=== PATIENT | female | born 1995 | race Caucasian/White ===

== ENCOUNTER 2017-04-25 11:25 | Emergency (ER) | payer OTHER ==
[2017-04-25 11:36] VITALS: BP 125/68; PULSE 101; TEMP 98.2; BMI 22.7
[2017-04-25] MEDS ORDERED: IBUPROFEN 400 MG TABLET (FP) PO ONE ×2 (12:44→12:52)
--- NOTE | 2017-04-25 12:54 | PDOC ---
History of Present Illness - General Chief Complaint: Respiratory Stated Complaint: FEVER Time Seen by Provider: 04/25/17 12:08 History Source: Patient Exam Limitations: No Limitations - History of Present Illness Initial Comments: 04/25/17 12:46 21 yr female 3 days fever, nasal congestion body aches sore throat. no flu vaccine this year. no vomiting Severity: reports: mild Past History - Past Medical History Allergies/Adverse Reactions: Allergies Allergy/AdvReac Type Severity Reaction Status Date / Time Penicillins Allergy Verified 04/25/17 11:36 Home Medications: Ambulatory Orders NK [No Known Home Medication] 04/25/17 COPD: No - Suicide/Smoking/Psychosocial Hx Smoking History: Never smoked Respiratory Specific PMHX - Complaint Specific PMHX Angina: No Bronchitis: No Pneumonia: No Pulmonary Embolus: No TB (Tuberculosis): No Review of Systems - Review of Systems Able to Perform ROS?: Yes Is the patient limited Tajik proficient: No Constitutional: No: Symptoms Reported HEENTM: Yes: Symptoms Reported Respiratory: Yes: Symptoms reported Cardiac (ROS): No: Symptoms Reported *Physical Exam - Vital Signs Last Vital Signs Temp Pulse Resp BP Pulse Ox 98.2 F 101 H 20 125/68 99 04/25/17 11:34 04/25/17 11:34 04/25/17 11:34 04/25/17 11:34 04/25/17 11:34 - Physical Exam General Appearance: Yes: Nourished, Appropriately Dressed HEENT: positive: EOMI, LUIS, Pharyngeal Erythema, Tonsillar Erythema, Nasal Congestion. negative: Tonsillar Exudate Neck: positive: Supple. negative: Lymphadenopathy (R), Lymphadenopathy (L) Respiratory/Chest: positive: Lungs Clear, Normal Breath Sounds Cardiovascular: positive: Regular Rhythm, Regular Rate Gastrointestinal/Abdominal: positive: Normal Bowel Sounds, Soft Musculoskeletal: positive: Normal Inspection Extremity: positive: Normal Capillary Refill, Normal Inspection, Normal Range of Motion Integumentary: positive: Normal Color, Dry, Warm Neurologic: positive: Fully Oriented, Alert, Normal Mood/Affect, Normal Response , Motor Strength 5/5 Medical Decision Making - Medical Decision Making 04/25/17 12:47 cc: fever, nasal congestion body aches sore throat non toxic flu like symptoms will check for strep pt is drinking well no vomiting *DC/Admit/Observation/Transfer Diagnosis at time of Disposition: Flu-like symptoms - Discharge Dispostion Disposition: HOME Condition at time of disposition: Good - Referrals - Patient Instructions Additional Instructions: drink at least 2 liters of water a day take motrin 600mg (advil, ibuprofen, motrin all the same medicine over the counter) every 6hrs for fever, pain or body aches gargle with warm salt water 4-5 times a day you have Flu Like symptoms and are highly contagious avoid crowds, avoid younger people and babies, avoid older adults return to ER for any change or worsening symptoms beber al menos 2 litros de agua al da tome motrin 600mg (advil, ibuprofeno, motrin, todas las mismas medicinas sin receta) cada 6 horas para la fiebre, el dolor o los taylor corporales hacer grgaras con agua salada tibia de 4 a 5 veces al da tiene sntomas de gripe y es muy contagioso, demetri las aglomeraciones, demetri a las personas ms jvenes y los bebs, demetri a los adultos mayores regresar a la ray de emergencias por cualquier cambio o empeoramiento de los s ntomas Print Language: VIETNAMESE - Post Discharge Activity
== END 2017-04-25 13:13 | disposition home or self-care (01) ==
LOC: JERFT 11:25
DX: J11.1 Influenza due to unidentified influenza virus with other respiratory manifestations (principal)
CPT/HCPCS: 87070; 87430; 99281-25

== ENCOUNTER 2018-08-19 06:30 | Emergency (ER) | payer OTHER ==
[2018-08-19 07:40] VITALS: TEMP 98.2; BMI 24.7
[2018-08-19] MEDS ORDERED: SODIUM CHLORIDE 0.9% 1000 ML INFUS.BAG IV ONE (07:44)
[2018-08-19] MEDS ORDERED: MAG HYDROX/AL HYDROX/SIMETH 30 ML UNIT-DOSE CUP PO ONE (07:44)
[2018-08-19] MEDS ORDERED: ONDANSETRON 4 MG/2 ML VIAL IVPUSH ONE (07:44)
[2018-08-19] MEDS ORDERED: FAMOTIDINE 20 MG/50 ML IVPB 20 MG/50 ML MG IVPB ONE ×2 (07:44→08:06)
[2018-08-19] MEDS ORDERED: LIDOCAINE VISCOUS 2% ORAL/TOP 20 ML UNIT-DOSE CUP MM ONE (07:45)
[2018-08-19] MEDS ORDERED: MAG HYDROX/AL HYDROX/SIMETH 30 ML UNIT-DOSE CUP ONE (08:06)
[2018-08-19] MEDS ORDERED: LIDOCAINE VISCOUS 2% ORAL/TOP 20 ML UNIT-DOSE CUP ONE (08:06)
[2018-08-19] MEDS ORDERED: ONDANSETRON 4 MG/2 ML VIAL ONE (08:06)
[2018-08-19 08:07] LABS: BASO % 0.6 % (0-2.0); HEMATOCRIT 38.5 % (32.4-45.2); LYMPH % 3.4 % (8-40); MCH 31.6 pg (25.7-33.7); MCHC 33.8 g/dl (32.0-36.0); MEAN CELL VOLUME 93.3 fl (80-96); MEAN PLT VOLUME 8.3 fl (7.5-11.1); MONO % 2.5 % (3.8-10.2); NEUT % 93.5 % (42.8-82.8); PLATELET COUNT 214 K/MM3 (134-434); RBC 4.13 M/mm3 (3.60-5.2); RDW 13.1 % (11.6-15.6)
[2018-08-19 08:34] LABS: EPI CELLS 7.5 /HPF (0-5/HPF); HCG,QUALITATIVE URINE Negative; PH,URINE 7.5 (5.0-8.0); URINE APPEARANCE TURBID; URINE BACTERIA 723.9 /hpf (NEGATIVE); URINE BILIRUBIN NEGATIVE (NEGATIVE); URINE CASTS 35 /lpf (0-8); URINE COLOR YELLOW; URINE GLUCOSE (UA) NEGATIVE (NEGATIVE); URINE KETONE NEGATIVE (NEGATIVE); URINE LEUK ESTERASE 1+ (NEGATIVE); URINE NITRITE NEGATIVE (NEGATIVE); URINE PROTEIN 1+ (NEGATIVE); URINE RBC 12 /hpf (0-4); URINE WBC 19 /hpf (0-5)
[2018-08-19 08:35] LABS: ALBUMIN 4.1 g/dl (3.4-5.0); ALK PHOS 90 U/L (45-117); ANION GAP 7 MMOL/L (8-16); BILIRUBIN,TOTAL 0.5 mg/dL (0.2-1); BLOOD UREA NITROGEN 9 mg/dL (7-18); CALCIUM 9.2 mg/dL (8.5-10.1); CHLORIDE 106 mmol/L (98-107); CO2 25 mmol/L (21-32); CREATININE 0.6 mg/dL (0.55-1.3); GLUCOSE,RANDOM 125 mg/dL (74-106); LIPASE 81 U/L (73-393); POTASSIUM 4.4 mmol/L (3.5-5.1); SGOT/AST 19 U/L (15-37); SGPT/ALT 19 U/L (13-61); SODIUM 138 mmol/L (136-145); TOT PROT 7.7 g/dl (6.4-8.2)
--- NOTE | 2018-08-19 08:40 | PDOC ---
Documentation entered by Aleshia Benjamin SCRIBE, acting as scribe for Renetta Avalos MD. Renetta Avalos MD: This documentation has been prepared by the rajniibe, Aleshia Benjamin SCRIBE, under my direction and personally reviewed by me in its entirety. I confirm that the documentation accurately reflects all work, treatment, procedures, and medical decision making performed by me. History of Present Illness - General Stated Complaint: VOMITING History Source: Patient Exam Limitations: No Limitations - History of Present Illness Initial Comments: 08/19/18 08:37 08/19/18 08:41 The patient is a 23 year old female with no significant past medical history who presents to the emergency department with severe epigastric pain since 3am this morning. The patient states that she was at home in bed this morning when she felt a sudden onset of 10/10 severe abdominal pain. She reports some associated episodes of vomiting (10x) and diarrhea (5x) since the onset of her epigastric pain. She denies any muscle pain, radiation of her pain, sick contact , recent travel. She also denies any recent alcohol intake. The patient states that she was recently taking azithromycin that had been prescribed to her for throat pain. It is noted that the patient is on birthcontrol (implant). She denies any suspicion for . The patient denies any fever, chills, constipation, weakness, dizziness, headache, urinary symptoms, chest pain or shortness of breath. She denies any other complaints. 08/19/18 08:57 Past History - Past Medical History Allergies/Adverse Reactions: Allergies Allergy/AdvReac Type Severity Reaction Status Date / Time Penicillins Allergy Verified 08/19/18 07:38 Home Medications: Ambulatory Orders NK [No Known Home Medication] 04/25/17 COPD: No - Suicide/Smoking/Psychosocial Hx Smoking History: Never smoked *Physical Exam - Vital Signs Last Vital Signs Temp Pulse Resp BP Pulse Ox 98.2 F 95 H 18 137/82 08/19/18 07:39 08/19/18 07:39 08/19/18 07:39 08/19/18 07:39 - Physical Exam Comments: 08/19/18 08:39 awake alert lungs clear bilaterlaly heart rrr no mrg abd soft epigastric ttp. no rebound no guarding. no cva tenderness. ruq nontender. ext wwp. skin warm and dry no rash. nuero alert oriented x 3. ED Treatment Course - LABORATORY CBC & Chemistry Diagram: 08/19/18 07:45 08/19/18 07:45 - ADDITIONAL ORDERS Additional order review: Laboratory Results 08/19/18 08/19/18 07:45 07:45 Sodium 138 Potassium 4.4 Chloride 106 Carbon Dioxide 25 Anion Gap 7 L BUN 9 Creatinine 0.6 Creat Clearance w eGFR 125.01 Random Glucose 125 H Calcium 9.2 Total Bilirubin 0.5 AST 19 ALT 19 Alkaline Phosphatase 90 Total Protein 7.7 Albumin 4.1 Lipase 81 Urine HCG, Qual Negative 08/19/18 07:45 RBC 4.13 MCV 93.3 MCHC 33.8 RDW 13.1 MPV 8.3 Neutrophils % 93.5 H Lymphocytes % 3.4 L Monocytes % 2.5 L Eosinophils % 0.0 Basophils % 0.6 - Medications Given in the ED: ED Medications Discontinued Medications Generic Name Dose Route Start Last Admin Trade Name Henryq PRN Reason Stop Dose Admin Al Hydroxide/Mg Hydroxide 30 ml 08/19/18 07:44 08/19/18 08:08 Mylanta Oral Suspension - PO 08/19/18 07:45 30 ml ONCE ONE Administration Famotidine/Sodium Chloride 20 mg in 50 mls @ 100 mls/hr 08/19/18 07:44 08:08 Pepcid 20 Mg Premixed Ivpb - IVPB 08/19/18 08:13 100 mls/hr ONCE ONE Administration Lidocaine HCl 10 ml 08/19/18 07:45 08/19/18 08:08 Xylocaine 2% Viscous Oral - MM 08/19/18 07:46 10 ml ONCE ONE Administration Ondansetron HCl 4 mg 08/19/18 07:44 08/19/18 08:08 Zofran Injection IVPUSH 08/19/18 07:45 4 mg ONCE ONE Administration Sodium Chloride 1,000 ml 08/19/18 07:44 08/19/18 08:08 Normal Saline - IV 08/19/18 07:45 1,000 ml ONCE ONE Administration Medical Decision Making - Medical Decision Making 08/19/18 08:39 23 yo F with no pmhx here with intractable n/v and epigastric pain since early am 3 am. pt states awoke with severe burning epigastric pian, nausea nd vomiting. threw up about 10 times. also has loose watery stool all nonbloody. pain is burning epigastric region. no radiation. no f/c no travel. did take azithromycin one tablet that she had at home last pm for sore throat. not , states she has implant control. only gets periods infrequently. no urinary complaints. no other complaints. on exam pain on epigastrum left upper quadrant. differential gastritis pancreatitis, uti dehydration hypokalemia, plan labs lipase ivf zofran pepcid and reassess. ua ucg. 08/19/18 08:57 focused ED us RUQ indication n/ v epigastric pain gallbladder scanned in two planes using curvilinear probe. no wall thickening, no wall edema. no stones. neg sonographic m[place]'s. cbd normal 2.8 mm. anterior gallbladder wall 2.8 mm impression: normal gallbladder bilateral kidneys scanned using ultrasound indication: flank pain bilat kidneys scanned in two planes. no cyst. right kidney length 10.1 cm. left kidney length 12.4 cm bladder nondistended. impression: normal renal ultrasound. 08/19/18 12:04 pt with [id number] wbc 17, however repeat exam minimal tenderness. likley secondary to intractable vomiting, afebrile here labs normal. ucg negative. tolerating PO and feeling improved. will dc home fu pcp. 08/19/18 12:07 *DC/Admit/Observation/Transfer Diagnosis at time of Disposition: Gastroenteritis - Discharge Dispostion Disposition: HOME Condition at time of disposition: Improved Decision to Admit order: No - Referrals Referrals: Delilah Moses MD [Primary Care Provider] - - Patient Instructions Printed Discharge Instructions: DI for Vomiting -- Adult, Nausea and Vomiting- Adult Additional Instructions: you should drink plenty of fluids, you can follow up with your primary doctor. your ultrasound of your kidneys and gallbladder today are normal. your labs show an elevated WBC which is likley due to a viral infection and from vomiting. you should follow up with your doctor to be seen within one week. c all to schedule. return for fever, persistant symptoms, worsening pain or any concerns. - Post Discharge Activity
[2018-08-19 10:58] LABS: ANISOCYTOSIS 0; MACROCYTOSIS 0; PLATELET ESTIMATE NORMAL
[2018-08-19 12:09] VITALS: BP 135/74; PULSE 79
== END 2018-08-19 12:14 | disposition home or self-care (01) ==
LOC: JER 06:30
PROC: 3E033GC Introduction of Other Therapeutic Substance into Peripheral Vein, Percutaneous Approach (ICD-10-PCS; principal; 2018-08-19)
PROC: 3E0337Z Introduction of Electrolytic and Water Balance Substance into Peripheral Vein, Percutaneous Approach (ICD-10-PCS; 2018-08-19)
DX: K52.9 Noninfective gastroenteritis and colitis, unspecified (principal)
CPT/HCPCS: 36415; 80053; 81003; 83690; 84703; 85025; 96361; 96365; 96375; 99282-25; J7030